=== PATIENT | male | born 1990 | race Caucasian/White ===

== ENCOUNTER 2016-04-07 18:32 | Emergency (ER) | payer OTHER | END 2016-04-07 19:20 | disposition home or self-care (01) | LOC: ER 18:32 | DX: L02.211 Cutaneous abscess of abdominal wall (principal); Z88.0 Allergy status to penicillin; Z88.1 Allergy status to other antibiotic agents ==

== ENCOUNTER 2016-04-20 08:46 | Emergency (ER) | payer OTHER | END 2016-04-20 09:24 | disposition home or self-care (01) | LOC: ER 08:46 | DX: J02.9 Acute pharyngitis, unspecified (principal); Z88.0 Allergy status to penicillin; Z88.1 Allergy status to other antibiotic agents ==